=== PATIENT | male | born 1955 | race Caucasian/White ===

== ENCOUNTER 2018-10-03 13:39 | Emergency (ER) | payer MEDICAID ==
[~2018-10-03] VITALS: Ht 185.4 cm; Wt 90.7 kg
[2018-10-03] MEDS ORDERED: PROTONIX40 M1 PO (14:11)
[2018-10-03] MEDS ORDERED: COLACE100 MG PO ×2 (14:11→14:14)
[2018-10-03] MEDS ORDERED: LISINOPRIL10 MG PO (14:11)
[2018-10-03] MEDS ORDERED: UNICOMPLEX M TA1 TA1 PO (14:12)
[2018-10-03] MEDS ORDERED: BUSPIRONE HCL10 MG PO (14:12)
[2018-10-03] MEDS ORDERED: MIRALAX17 GM PO (14:12)
[2018-10-03] MEDS ORDERED: QUETIAPINE FUM100 MG PO (14:13)
[2018-10-03] MEDS ORDERED: RISPERDAL4 M1 PO (14:13)
[2018-10-03] MEDS ORDERED: ABILIFY20 MG PO (14:14)
[2018-10-03] MEDS ORDERED: DEPAKOTE ER500 MG PO (14:14)
[2018-10-03] MEDS ORDERED: TOFRANIL25 MG PO (14:15)
[2018-10-03] MEDS ORDERED: TYLENOL325 MG PO (14:15)
[2018-10-03] MEDS ORDERED: NAPROSYN500 MG PO (14:16)
[2018-10-03] MEDS ORDERED: MILK OF MA2400 MG/10 PO (14:16)
[2018-10-03] MEDS ORDERED: ELOCON15 GM TOP (14:17)
[2018-10-03] MEDS ORDERED: TRIAMCINOLONE 080 G3 TOP (14:17)
[2018-10-03 16:13] VITALS: BP 129/87
== END 2018-10-03 16:14 | disposition home or self-care (01) ==
LOC: M.ERS 13:39
DX: S93.492A Sprain of other ligament of left ankle, initial encounter (principal); S89.92XA Unspecified injury of left lower leg, initial encounter; F31.9 Bipolar disorder, unspecified; F42.9 Obsessive-compulsive disorder, unspecified; I10 Essential (primary) hypertension; Z86.2 Personal history of diseases of the blood and blood-forming organs and certain disorders involving the immune mechanism; W01.0XXA Fall on same level from slipping, tripping and stumbling without subsequent striking against object, initial encounter; Y92.89 Other specified places as the place of occurrence of the external cause; Y93.89 Activity, other specified; Y99.8 Other external cause status

== ENCOUNTER → 2018-11-11 | Outpatient (CLI) | payer MEDICARE, MEDICAID ==
[~2018-11-11] MED LIST: ABILIFY20 MG PO; BUSPIRONE HCL10 MG PO; COLACE100 MG PO; DEPAKOTE ER500 MG PO; ELOCON15 GM TOP; LISINOPRIL10 MG PO; MILK OF MA2400 MG/10 PO; MIRALAX17 GM PO; NAPROSYN500 MG PO; PROTONIX40 M1 PO; QUETIAPINE FUM100 MG PO; RISPERDAL4 M1 PO; TOFRANIL25 MG PO; TRIAMCINOLONE 080 G3 TOP; TYLENOL325 MG PO; UNICOMPLEX M TA1 TA1 PO
== END ==
LOC: M.MRI 16:28
DX: S82.045A Nondisplaced comminuted fracture of left patella, initial encounter for closed fracture (principal); S72.425A Nondisplaced fracture of lateral condyle of left femur, initial encounter for closed fracture; S83.242A Other tear of medial meniscus, current injury, left knee, initial encounter; X50.1XXA Overexertion from prolonged static or awkward postures, initial encounter; Y93.89 Activity, other specified; Y92.89 Other specified places as the place of occurrence of the external cause; Y99.8 Other external cause status

== ENCOUNTER 2018-11-19 12:09 | Emergency (ER) | payer MEDICARE, MEDICAID ==
[~2018-11-19] VITALS: Ht 188 cm; Wt 104.3 kg
[2018-11-19] MEDS ORDERED: PRESERVISION T1 EACH PO (12:38)
[2018-11-19] MEDS ORDERED: TIROSINT25 MCG PO (12:38)
[2018-11-19] MEDS ORDERED: IMIPRAMINE HCL25 MG PO (12:39)
[2018-11-19] MEDS ORDERED: IBUPROFEN 800800 M1 PO (13:13)
[2018-11-19 13:40] VITALS: BP 122/88
== END 2018-11-19 13:41 | disposition home or self-care (01) ==
LOC: M.ERS 12:09
DX: S82.092A Other fracture of left patella, initial encounter for closed fracture (principal); F42.9 Obsessive-compulsive disorder, unspecified; F31.9 Bipolar disorder, unspecified; I10 Essential (primary) hypertension; G20 Parkinson's disease; Z86.2 Personal history of diseases of the blood and blood-forming organs and certain disorders involving the immune mechanism; X50.1XXA Overexertion from prolonged static or awkward postures, initial encounter; Y92.89 Other specified places as the place of occurrence of the external cause; Y93.89 Activity, other specified; Y99.8 Other external cause status

== ENCOUNTER 2018-11-30 19:33 | Inpatient (IN) | payer MEDICARE, MEDICAID ==
[~2018-11-30] VITALS: Ht 185.4 cm; Wt 94.8 kg
[~2018-11-30 19:33] MED LIST changes: +IBUPROFEN 800800 M1 PO; +IMIPRAMINE HCL25 MG PO; +PRESERVISION T1 EACH PO; +TIROSINT25 MCG PO
[2018-11-30 19:35] VITALS: BP 131/68
[2018-11-30 20:04] LABS: ABSOLUTE EOSINOPHILS 0.1 thou/uL (0.0-0.7); ABSOLUTE LYMPHOCYTES 1.4 thou/uL (0.8-5.3); ABSOLUTE MONOCYTES 0.8 thou/uL (0.0-1.2); ABSOLUTE NEUTROPHILS 2.1 thou/uL (1.6-8.1); BASOPHILS 0.9 %; EOSINOPHILS 2.3 %; HEMATOCRIT 35.6 % (42.0-52.0); HEMOGLOBIN 12.1 gm/dL (14.0-18.0); LYMPHOCYTES 32.1 %; MCH 29.8 pg (26.0-34.0); MCV 87.7 fL (80.0-100.0); MPV 7.8 fl. (7.2-11.1); NUCLEATED RBCS 0 /100WBC; PLATELET COUNT* 207 thou/uL (150-400); POLYS 47.7 %; RBC 4.05 mil/uL (4.50-6.00); RDW-CV 14.1 % (10.5-14.5); WBC 4.4 thou/uL (4.0-11.0)
[2018-11-30 20:13] LABS: INR 1.1; PROTIME 10.9 Seconds (9.20-11.50)
[2018-11-30 20:21] LABS: ANION GAP 8 mmol/L (7-16); BUN 49 mg/dL (7-18); CALCIUM 8.5 mg/dL (8.5-10.1); CHLORIDE 104 mmol/L (98-107); CO2 27 mmol/L (21-32); CREATININE 2.3 mg/dL (0.6-1.3); GLUCOSE 111 mg/dL (70-99); SODIUM 139 mmol/L (136-145); TROPONIN-I LEVEL <0.06 ng/mL (<0.06)
[2018-11-30 20:23] LABS: ALBUMIN 3.1 g/dL (3.4-5.0); ALKALINE PHOSPHATASE 126 U/L (46-116); NT-PRO BRAIN NAT PEPTIDE 78 pg/mL (<300); SGOT 20 U/L (15-37); SGPT 13 U/L (30-65); TOTAL BILIRUBIN 0.2 mg/dL (<0.1-1.0); TOTAL PROTEIN 7.4 g/dL (6.4-8.2)
[2018-11-30 22:54] VITALS: BP 114/65
[2018-11-30 23:20] LABS: URINE BILIRUBIN NEGATIVE (Negative); URINE BLOOD NEGATIVE (Negative); URINE CLARITY CLEAR; URINE COLOR YELLOW; URINE GLUCOSE-RANDOM NEGATIVE (Negative); URINE KETONES NEGATIVE (Negative); URINE LEUKOCYTES-REFLEX NEGATIVE (Negative); URINE NITRITE-REFLEX NEGATIVE (Negative); URINE PROTEIN NEGATIVE (Negative); URINE UROBILINOGEN 0.2 E.U./dl (0.2-1.0)
[2018-12-01] VITALS: BP 130/66
[2018-12-01] MEDS ORDERED: DEPAKOTE ER250 MG PO (00:12)
[2018-12-01 04:00] VITALS: BP 142/75
[2018-12-01 08:00] VITALS: BP 136/67
[2018-12-01 12:00] VITALS: BP 141/79
[2018-12-01 16:00] VITALS: BP 141/78
[2018-12-01 20:00] VITALS: BP 126/65; BP 130/64
[2018-12-02] VITALS (8 sets, daily range): BP systolic 130–154; BP diastolic 66–84
[2018-12-02 04:46] LABS: CALCIUM 8.8 mg/dL (8.5-10.1); POTASSIUM 4.7 mmol/L (3.5-5.1)
[2018-12-02 05:01] LABS: CREATININE 1.1 mg/dL (0.6-1.3)
--- NOTE | 2018-12-02 11:06 | EKG ---
[place] [address] ELECTROCARDIOGRAM REPORT Name: RIOFORTINO Ciera Room: [address] ADM IN M.R.#: [id number] Admission: 11/30/18 Attend Phys: Juan Khan MD Discharge: Date of : 55 Report #: [id number] THIS REPORT FOR: //name// [facility] ED Test Date: 2018-11-30 Test Time: 19:39:17 Pat Name: FORTINO PATE Department: Room: [facility] Gender: M Supervisory Lifeguard: BRANDO : 1955 Requested By: Marleen Can Order Number: [id number] MD: Dennis Bradshaw Measurements Intervals [place] Rate: 88 P: [place]: QRS: 98 QRSD: 123 T: 57 QT: 359 QTc: 435 Interpretive Statements Sinus rhythm Nonspecific intraventricular conduction delay No previous ECG available for comparison Electronically Signed On 12-02-2018 11:05:54 CDT by Dennis Bradshaw [email or web address] <ELECTRONICALLY SIGNED> By: Dennis Bradshaw MD, [facility] 12/02/18 1105 1939 38 Dennis Bradshaw MD, FACC /EPI
[2018-12-02] MEDS ORDERED: MILK OF MA2400 MG/11 PO (13:23)
--- NOTE | 2018-12-02 16:46 | 2DMMODE ---
[place] [address] 2 D/M-MODE ECHOCARDIOGRAM Name: RIOFORTINO Vang Room: [address] IN [facility]#: [id number] Admission: 11/30/18 Attend Phys: Juan Khan MD Discharge: Date of : 55 Date of Service: 12/02/18 1645 Report #: [id number] THIS REPORT FOR: //name// APPROVED REPORT Study performed: 12/02/2018 13:39:18 EXAM: Comprehensive 2D, Doppler, and color-flow Echocardiogram Patient Location: In-Patient Room #: 214 Status: routine BSA: 2.19 HR: 83 bpm BP: 154/84 mmHg Rhythm: NSR Indications Syncope 2D Dimensions IVSd: 7.84 (7-11mm) LVOT Diam: 21.55 (18-24mm) LVDd: 36.06 mm PWd: 8.45 (7-11mm) Ascending Ao: 31.74 (22-36mm) LVDs: 19.34 (25-40mm) Aortic Root: 36.02 mm Volumes Left Atrial Volume (Systole) LA ESV Index: 11.90 mL/m2 Aortic Valve AoV Peak Derrick.: 1.11 m/s AO Peak Gr.: 4.95 mmHg LVOT Max P.06 mmHg AO Mean Gr.: 2.82 mmHg LVOT Mean P.59 mmHg LVOT Max V: 0.88 m/s AO V2 VTI: 21.12 cm LVOT Mean V: 0.59 m/s JOSE (VTI): 3.11 cm2 LVOT V1 VTI: 18.01 cm Mitral Valve E/A Ratio: 0.76 MV Decel. Time: 273.50 ms MV E Max Derrick.: 0.75 m/s MV PHT: 79.31 ms MVA (PHT): 2.77 [place] [address] 2 D/M-MODE ECHOCARDIOGRAM Name: FORTINO PATE Room: [address] IN [facility]#: [id number] Admission: 11/30/18 Attend Phys: Juan Khan MD Discharge: Date of : 55 Date of Service: 12/02/18 1645 Report #: [id number] TDI E/Lateral E': 8.33 E/Medial E': 6.82 Medial E' Derrick.: 0.11 m/s Lateral E' Derrick.: 0.09 m/s Pulmonary Valve PV Peak Derrick.: 0.96 m/s PV Peak Gr.: 3.71 mmHg Left Ventricle The left ventricle is normal size. There is normal LV segmental wall motion. Borderline concentric left ventricular hypertrophy. Left ventricular systolic function is normal. The left ventricular ejection fraction is within the normal range. LVEF is 65%. Grade I - abnormal relaxation pattern. Right Ventricle The right ventricle is normal size. The right ventricular systolic function is normal. Atria The left atrium size is normal. The right atrium size is normal. Aortic Valve Aortic valve leaflets are mildly thickened. No aortic regurgitation is present. There is no aortic valvular stenosis. Mitral Valve The mitral valve is normal in structure. There is no mitral valve regurgitation noted. No evidence of mitral valve stenosis. Tricuspid Valve The tricuspid valve is normal in structure. Unable to assess PA pressure. Trace tricuspid regurgitation. Pulmonic Valve The pulmonary valve is normal in structure. There is no pulmonic valvular regurgitation. Great Vessels The aortic root is normal in size. IVC is normal in size and collapses >50% with inspiration. Pericardium There is no [place] [address] 2 D/M-MODE ECHOCARDIOGRAM Name: RIOFORTINO Vang Room: [address] IN [facility]#: [id number] Admission: 11/30/18 Attend Phys: Juan Khan MD Discharge: Date of : 55 Date of Service: 12/02/18 1645 Report #: [id number] <Conclusion> The left ventricle is normal size. Borderline concentric left ventricular hypertrophy. Left ventricular systolic function is normal. The left ventricular ejection fraction is within the normal range. LVEF is 65%. Grade I - abnormal relaxation pattern. The right ventricle is normal size. The left atrium size is normal. Aortic valve leaflets are mildly thickened. No aortic regurgitation is present. There is no aortic valvular stenosis. The mitral valve is normal in structure. The tricuspid valve is normal in structure. IVC is normal in size and collapses >50% with inspiration. There is no pericardial effusion. There is normal LV segmental wall motion. <ELECTRONICALLY SIGNED> By: Dennis Bradshaw MD, [facility] 12/02/18 1645 164 164 Dennis Bradshaw MD, FAC /INF
== END 2018-12-02 17:47 | disposition home or self-care (01) | DRG 70 ==
LOC: M.ERS 19:33 → M.TBA-ER 21:22 → M.2W 21:22
PROVIDERS: Emergency Medicine; Internal Medicine; ADMIT Family Medicine
DX: G93.41 Metabolic encephalopathy (principal); N17.0 Acute kidney failure with tubular necrosis; F42.9 Obsessive-compulsive disorder, unspecified; I10 Essential (primary) hypertension; F17.220 Nicotine dependence, chewing tobacco, uncomplicated; F31.9 Bipolar disorder, unspecified; K44.9 Diaphragmatic hernia without obstruction or gangrene; G20 Parkinson's disease; Z79.899 Other long term (current) drug therapy

== ENCOUNTER 2018-12-19 14:10 | Inpatient (IN) | payer MEDICARE, MEDICAID ==
[~2018-12-19] VITALS: Ht 185.4 cm; Wt 78.9 kg
[~2018-12-19 14:10] MED LIST changes: +DEPAKOTE ER250 MG PO; +MILK OF MA2400 MG/11 PO
[2018-12-19 14:13] VITALS: BP 110/74
--- NOTE | 2018-12-19 14:20 | NUR ---
CANDE CARO DEPUTY WASHER ASSEMBLER GAVE CONSENT FOR TREATMENT OF FORTINO PATE. CANDE APPROVED CONSENT AND STATES THAT HE IS CONTACTING ELSA WELSH TO NOTIFY HIM OF PT'S EMERGENCY ROOM VISIT. CANDE WAS CONTACTED AT [phone]
[2018-12-19 14:38] LABS: ABSOLUTE EOSINOPHILS 0.1 thou/uL (0.0-0.7); ABSOLUTE LYMPHOCYTES 1.1 thou/uL (0.8-5.3); ABSOLUTE MONOCYTES 0.6 thou/uL (0.0-1.2); ABSOLUTE NEUTROPHILS 1.2 thou/uL (1.6-8.1); BASOPHILS 0.9 %; EOSINOPHILS 1.7 %; HEMATOCRIT 36.9 % (42.0-52.0); HEMOGLOBIN 12.5 gm/dL (14.0-18.0); LYMPHOCYTES 37.4 %; MCH 29.8 pg (26.0-34.0); MCHC 33.9 g/dL (28.0-37.0); MCV 87.9 fL (80.0-100.0); MONOCYTES 19.6 %; MPV 7.8 fl. (7.2-11.1); NUCLEATED RBCS 0 /100WBC; PLATELET COUNT* 163 thou/uL (150-400); POLYS 40.4 %; RDW-CV 14.7 % (10.5-14.5); WBC 3.1 thou/uL (4.0-11.0)
[2018-12-19 14:56] LABS: ANION GAP 7 mmol/L (7-16); BUN 23 mg/dL (7-18); CALCIUM 9.2 mg/dL (8.5-10.1); CHLORIDE 106 mmol/L (98-107); CO2 30 mmol/L (21-32); CREATININE 1.1 mg/dL (0.6-1.3); GLUCOSE 96 mg/dL (70-99); POTASSIUM 4.4 mmol/L (3.5-5.1); SODIUM 143 mmol/L (136-145); TROPONIN-I LEVEL <0.06 ng/mL (<0.06)
[2018-12-19 14:58] LABS: ALBUMIN 3.2 g/dL (3.4-5.0); ALKALINE PHOSPHATASE 114 U/L (46-116); NT-PRO BRAIN NAT PEPTIDE 28 pg/mL (<300); SGOT 15 U/L (15-37); SGPT 16 U/L (30-65); TOTAL BILIRUBIN 0.4 mg/dL (<0.1-1.0); TOTAL PROTEIN 8.2 g/dL (6.4-8.2)
[2018-12-19 16:00] LABS: URINE BILIRUBIN NEGATIVE (Negative); URINE BLOOD NEGATIVE (Negative); URINE CLARITY CLEAR; URINE COLOR YELLOW; URINE GLUCOSE-RANDOM NEGATIVE (Negative); URINE KETONES NEGATIVE (Negative); URINE LEUKOCYTES-REFLEX NEGATIVE (Negative); URINE NITRITE-REFLEX NEGATIVE (Negative); URINE PROTEIN NEGATIVE (Negative); URINE SPECIFIC GRAVITY 1.015 (1.005-1.030); URINE UROBILINOGEN 0.2 E.U./dl (0.2-1.0)
[2018-12-19 17:14] VITALS: BP 127/77
[2018-12-19 17:15] VITALS: BP 122/73
--- NOTE | 2018-12-19 18:00 | NUR ---
PT ADMITTED TO ROOM 212 VIA CART FROM ED AT APPROXIMATELY 1720. ADMISSION ASSESSMENT AND HISTORY COMPLETED. REFER TO CHARTING. PT A&0X4, DENIES ANY PAIN OR SHORTNESS OF BREATH. CAREGIVER AT BEDSIDE AND ASSISTED WITH PT HISTORY. TREMORS NOTED. PT TRACING SR ON THE EMPLOYMENT SECURITY OFFICER. ON RA SAT UPPER 90'S. PT UP WITH 1 ASSIST AND WALKER, LLE BRACE AND GAIT BELT TO BATHROOM. PT UNSTEADY AT TIMES. SEPSIS SCREENING COMPLETE- PT NEGATIVE. MEDICATIONS PER OCT. PT REPOSITIONS SELF. HOURLY ROUNDING OBSERVED. BED IN LOW POSITION. BED ALARM IN PLACE. FALL PRECAUTIONS IN PLACE. CALL LIGHT WITHIN REACH. WILL CONTINUE PLAN OF CARE.
[2018-12-19 20:05] VITALS: BP 140/75
[2018-12-20 00:15] VITALS: BP 123/76
[2018-12-20 03:46] VITALS: BP 115/69
--- NOTE | 2018-12-20 04:27 | NUR ---
PATIENT NOT PROGRESSING TOWARDS GOALS: PATIENT HAS C/O CHEST PAIN THAT "COMES AND GOES." PATIENT DESCRIBES PAIN STABBING BUT UNABLE TO RATE IT ON NUMERIC SCALE. PATIENT POINTS TO EPIGASTRIC REGION WHEN ASKED TO LOCALIZE PAIN. CTA CHEST COMPLETED FOR ELEVATED D-DIMER AND CHEST PAIN. NEGATIVE FOR PE BUT SHOWS LARGE STOOL IN COLON AND MULTIPLE GALLSTONES IN GALLBLADDER. PATIENT AND CAREGIVER UNABLE TO RECALL LAST BOWEL MOVEMENT. MILK OF MAGNESIA AND COLACE GIVEN. NO BOWEL MOVEMENT THIS SHIFT. NO N/V. CALL LIGHT WITHIN REACH
[2018-12-20 05:25] LABS: HEMATOCRIT 34.6 % (42.0-52.0); HEMOGLOBIN 12.1 gm/dL (14.0-18.0); MCH 30.8 pg (26.0-34.0); MCV 87.8 fL (80.0-100.0); MPV 8.5 fl. (7.2-11.1); NUCLEATED RBCS 0 /100WBC; PLATELET COUNT* 150 thou/uL (150-400); RBC 3.94 mil/uL (4.50-6.00); RDW-CV 14.5 % (10.5-14.5); WBC 3.6 thou/uL (4.0-11.0)
[2018-12-20 05:38] LABS: CALCIUM 9.3 mg/dL (8.5-10.1); POTASSIUM 4.3 mmol/L (3.5-5.1)
[2018-12-20 06:27] LABS: ABSOLUTE EOSINOPHILS 0.1 thou/uL (0.0-0.7); ABSOLUTE LYMPHOCYTES 1.7 thou/uL (0.8-5.3); ABSOLUTE MONOCYTES 0.8 thou/uL (0.0-1.2); ABSOLUTE NEUTROPHILS 0.9 thou/uL (1.6-8.1); PLATELET ESTIMATE ADEQUATE
[2018-12-20 06:28] LABS: ANISOCYTOSIS 1+; POIKILOCYTOSIS 1+
[2018-12-20 07:39] VITALS: BP 114/72
--- NOTE | 2018-12-20 09:45 | NUR ---
ASSUMED CARE OF PT AT 0730. PT RESTING IN BED. CAREGIVER AT BEDSIDE. PT A&0X4, DENIES ANY PAIN OR SHORTNESS OF BREATH. TREMORS NOTED. PT TRACING SR ON THE REHAB AIDE. ON RA SAT UPPER 90'S. PT UP WITH 1 ASSIST WALKER, GAIT BELT AND LLE BRACE. PT GOAL FOR TODAY IS TO REMAIN FREE FROM CHEST PAIN, HAVE A BOWEL MOVEMENT AND INCREASE ACTIVITY. AM ASSESSMENT CHARTED, MEDICATIONS PER MAR. PT REPOSITIONS SELF. HOURLY ROUNDING OBSERVED. BED IN LOW POSITION. CALL LIGHT WITHIN REACH. WILL CONTINUE PLAN OF CARE.
--- NOTE | 2018-12-20 09:54 | EKG ---
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 12/20/18 0954 1411 141 Burak Garcia MD, FAC /EPI
--- NOTE | 2018-12-20 11:51 | NUR ---
Pt is A&O. Pt resides at a [facility], [facility], caregiver in room. Staff prepare all of the meals, pass meds and provide transportation. Pt is using a walker, post a broken knee cap, Pt also has a leg brace. No hx of HH of SNF. Pt has a Public Casket Liner, that needs [place] be contacted [place] [phone]. supervisor felting at [facility] is Sharla Post [phone], staff will provide [place] transportation.
[2018-12-20 12:10] VITALS: BP 114/66
[2018-12-20 15:59] VITALS: BP 117/75
--- NOTE | 2018-12-20 18:22 | NUR ---
NO ACUTE CHANGES THROUGHOUT SHIFT. REFER TO CHARTING. PT SLOWLY PROGRESSING TOWARDS GOALS. CAREGIVER REMAINS AT BEDSIDE. CONTINUES TO TRACE SR ON THE WINE MAKER. ON RA SAT UPPER 90'S. DENIES ANY SHORTNESS OF BREATH. PT UP WITH 1 ASSIST WALKER AND LLE BRACE. MEDICATIONS PER OCT. PT REPOSITIONS SELF. HOURLY ROUNDING OBSERVED. BED IN LOW POSITION. CALL LIGHT WITHIN REACH. WILL CONTINUE PLAN OF CARE.
[2018-12-20 20:00] VITALS: BP 104/64
[2018-12-21] VITALS: BP 106/58
[2018-12-21 04:00] VITALS: BP 100/56
[2018-12-21 04:49] LABS: HEMATOCRIT 35.8 % (42.0-52.0); MCH 29.4 pg (26.0-34.0); MCHC 33.5 g/dL (28.0-37.0); MCV 87.9 fL (80.0-100.0); MPV 8.7 fl. (7.2-11.1); RBC 4.08 mil/uL (4.50-6.00); RDW-CV 14.4 % (10.5-14.5); WBC 3.8 thou/uL (4.0-11.0)
[2018-12-21 05:08] LABS: ALBUMIN 2.9 g/dL (3.4-5.0); CREATININE 1.1 mg/dL (0.6-1.3); MAGNESIUM 1.8 mg/dL (1.8-2.4); PHOSPHORUS* 4.6 mg/dL (2.5-4.9); POTASSIUM 4.5 mmol/L (3.5-5.1); TOTAL BILIRUBIN 0.3 mg/dL (<0.1-1.0); TOTAL PROTEIN 7.2 g/dL (6.4-8.2)
--- NOTE | 2018-12-21 05:40 | NUR ---
ASSUMED CARE OF PT AFTER REPORT AT 1930. PT A&OX4. VSS. PHYSICAL ASSESSMENT COMPLETED AND CHARTED. PT ON RA WITH 93% O2 SAT. PT TRACING SR ON TELE. DENIES ANY PAIN OR SOA. PT RESTED WELL ON BED. HOURLY ROUNDING OBSERVED. CALL LIGHT WITHIN REACH.
--- NOTE | 2018-12-21 07:15 | NUR ---
CHANGE OF SHIFT BEDSIDE REPORT GIVEN PATIENT SEEN AT BEDSIDE IN BED ASLEEP ASSUMED PATIENT CARE
[2018-12-21 08:00] VITALS: BP 114/84
[2018-12-21 12:24] VITALS: BP 95/56
[2018-12-21 13:45] VITALS: BP 95/56
--- NOTE | 2018-12-21 15:00 | NUR ---
DISCHARGE TO [facility] IV AND HEART MONITOR REMOVED PERSOANL BELONGINGS RETURNED INSTRUCTIONS AND COPIES OF DISCHARGE ORDERS SENT REPORT GIVEN TO MIHIR NURSE AT [facility] PATIENT ASSISTED OUT VIA WC TO WAITING CAR
== END 2018-12-21 15:00 | disposition home or self-care (01) | DRG 178 ==
LOC: M.ERS 14:10 → M.2W 15:58 → M.TBA-ER 15:58 → M.2W 17:31
PROVIDERS: Nurse Practitioner; ADMIT Internal Medicine
DX: J69.0 Pneumonitis due to inhalation of food and vomit (principal); B19.10 Unspecified viral hepatitis B without hepatic coma; R65.10 Systemic inflammatory response syndrome (SIRS) of non-infectious origin without acute organ dysfunction; F42.9 Obsessive-compulsive disorder, unspecified; F31.9 Bipolar disorder, unspecified; K80.20 Calculus of gallbladder without cholecystitis without obstruction; K21.9 Gastro-esophageal reflux disease without esophagitis; R07.89 Other chest pain; R62.50 Unspecified lack of expected normal physiological development in childhood; K59.00 Constipation, unspecified; E03.9 Hypothyroidism, unspecified; I10 Essential (primary) hypertension; Z87.891 Personal history of nicotine dependence; Z79.899 Other long term (current) drug therapy; Z82.49 Family history of ischemic heart disease and other diseases of the circulatory system

== ENCOUNTER 2019-03-09 10:26 | Inpatient (IN) | payer MEDICARE, MEDICAID ==
[~2019-03-09] VITALS: Ht 188 cm; Wt 92.5 kg
[2019-03-09 10:28] VITALS: BP 143/75
--- NOTE | 2019-03-09 10:48 | NUR ---
SUE MURILLO WITH THE [facility] PUBLIC ADMINISTRATORS OFFICE HAS GIVEN CONSENT FOR THE PATIENT TO BE TREATED AT THIS FACILITY TODAY.
[2019-03-09 10:51] LABS: ABSOLUTE EOSINOPHILS 0.1 thou/uL (0.0-0.7); ABSOLUTE LYMPHOCYTES 1.5 thou/uL (0.8-5.3); ABSOLUTE MONOCYTES 0.6 thou/uL (0.0-1.2); ABSOLUTE NEUTROPHILS 1.6 thou/uL (1.6-8.1); BASOPHILS 0.6 %; EOSINOPHILS 2.1 %; HEMATOCRIT 39.5 % (42.0-52.0); HEMOGLOBIN 13.4 gm/dL (14.0-18.0); LYMPHOCYTES 39.7 %; MCH 29.5 pg (26.0-34.0); MCV 86.7 fL (80.0-100.0); MPV 7.9 fl. (7.2-11.1); NUCLEATED RBCS 0 /100WBC; PLATELET COUNT* 175 thou/uL (150-400); POLYS 42.6 %; RBC 4.55 mil/uL (4.50-6.00); RDW-CV 14.8 % (10.5-14.5); WBC 3.8 thou/uL (4.0-11.0)
[2019-03-09 11:00] LABS: APTT 29.4 Seconds (25.0-31.3); INR 1.1; PROTIME 10.9 Seconds (9.20-11.50)
[2019-03-09 11:06] LABS: ANION GAP 9 mmol/L (7-16); BUN 19 mg/dL (7-18); CALCIUM 8.7 mg/dL (8.5-10.1); CHLORIDE 104 mmol/L (98-107); CO2 29 mmol/L (21-32); CREATININE 0.9 mg/dL (0.6-1.3); GLUCOSE 138 mg/dL (70-99); SODIUM 142 mmol/L (136-145)
[2019-03-09 11:09] LABS: ALBUMIN 3.4 g/dL (3.4-5.0); ALKALINE PHOSPHATASE 125 U/L (46-116); NT-PRO BRAIN NAT PEPTIDE 20 pg/mL (<300); SGOT 17 U/L (15-37); SGPT 21 U/L (30-65); TOTAL BILIRUBIN 0.3 mg/dL (<0.1-1.0); TOTAL PROTEIN 7.5 g/dL (6.4-8.2); TROPONIN-I LEVEL <0.06 ng/mL (<0.06)
[2019-03-09 12:14] LABS: URINE BILIRUBIN NEGATIVE (Negative); URINE BLOOD NEGATIVE (Negative); URINE CLARITY CLEAR; URINE COLOR YELLOW; URINE GLUCOSE-RANDOM NEGATIVE (Negative); URINE KETONES NEGATIVE (Negative); URINE LEUKOCYTES-REFLEX NEGATIVE (Negative); URINE NITRITE-REFLEX NEGATIVE (Negative); URINE PROTEIN NEGATIVE (Negative); URINE UROBILINOGEN 0.2 E.U./dl (0.2-1.0)
[2019-03-09 12:34] LABS: CHOLESTEROL 168 mg/dL (<200); HDL CHOLESTEROL 40 mg/dL (>40); LDL CHOLESTEROL 98 mg/dL (<100); TC:HDL 4.2 Ratio (Not establshd); TRIGLYCERIDE 151 mg/dL (<150); VLDL 30 mg/dL (<40)
[2019-03-09 12:35] LABS: SERUM ASSESSMENT Clear
--- NOTE | 2019-03-09 14:58 | NUR ---
PT ADMITTED TO TELE FLOOR AT 1410 REPORT RECEIVED FROM NURSE. PT IS AOX2 FORGETFUL AND CONFUSED. PT IS ACCOMPANIED BY STAFF FROM [facility] WHERE HE IS FROM. ON RA AND O2 SATURATION IS 97%. TROP NEGATIVE. PT DENIES ANY PAIN. NO DIZINESS AT TIME OF ADMISSION. ADMISSION ASSESSMENT AND HX DONE AT BEDSIDE. CALL LIGHT AT REACH. WILL CONTINUE TO MONITOR
[2019-03-09 15:02] VITALS: BP 130/76
[2019-03-09 19:40] VITALS: BP 115/66
[2019-03-10] VITALS (11 sets, daily range): BP systolic 95–148; BP diastolic 49–89
--- NOTE | 2019-03-10 05:32 | NUR ---
PT CARE ASSUMED AT 1930. SAT MAINTAINED IN RA. PT IS CONFUSED. FOLLOWS COMMANDS. CALL LIGHT WITHIN REACH AND BED IN LOW POSITION. DENIES PAIN AND SOB. HOURLY ROUNDING DONE FOR PT SAFETY.
--- NOTE | 2019-03-10 11:40 | NUR ---
PT ORTHOSTATIC BP CHECKED AT 11:35. RESULT CHARTED. SEE CHART
--- NOTE | 2019-03-10 15:27 | NUR ---
Spoke with CG. Pt resides in a shelter. Staff complete cooking, cleaning and provide transportation. Pt has a walker that he can use if needed. No hx of HH or SNF. Pt has a Public Adm, who will need to be contacted at [place]. Following.
--- NOTE | 2019-03-10 16:04 | EKG ---
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
--- NOTE | 2019-03-10 17:22 | NUR ---
1 LITER OF FLUID GIVEN ORDERED FOR POSITIVE ORTHOSTATIC BP. ORTHOSTATIC BP CHECKED AND CHARTED. SEE CHART.
[2019-03-11] VITALS (12 sets, daily range): BP systolic 87–136; BP diastolic 56–83
--- NOTE | 2019-03-11 05:11 | NUR ---
PT CARE ASSUMED AT 1930. SAT MAINTAINED IN RA. USES CALL LIGHT APPROPRIATELY. DENIES PAIN AND SOB. CALL LIGHT WITHIN REACH AND BED IN LOW POSITION. HOURLY ROUNDING DONE FOR PT SAFETY.
[2019-03-11] MEDS ORDERED: MIDODRINE HCL 55 M1 PO (10:01)
--- NOTE | 2019-03-11 10:40 | NUR ---
ASSUMED PT CARE REPORT RECEIVED FROM NURSE. PT IS AOX4. SR ON WINDOWS APPLICATION DEVELOPER .ON RA, O2 SATURATION IS 95%. ORTHOSTATIC BP MEASURED. SEE CHART FOR RESULT. PT/OT. MIDODRINE GIVEN ORDERED. PT DENIES DIZINESS, SOA. EXTREMITIES AR WARM. PENDING DC PLAN AFTER LUNCH TIME AFTER CHECKING ORTHOSTATIC BP AGAIN. STAFF FROM [facility] IN PT ROOM. CALL LIGHT AT REACH. WILL CONTINUE TO MONITOR PT
--- NOTE | 2019-03-11 12:20 | NUR ---
ORTHOSTATIC BP RECHECK. SEE CHART. PT DENIES DIZINESS OR WEAKNESS. PT STATES: I DO NOT FEEL LIKE A LEAF ANYMORE".
--- NOTE | 2019-03-11 12:22 | NUR ---
BP WAS COMMUNICATED TO DR ATKINS. NO FURHTER ORDERS. PT TO GO HOME AFTER LUNCH WITH PLANNED TRANSPORTATION FROM [facility]
--- NOTE | 2019-03-11 12:36 | NUR ---
Pt discharging to home today. Spoke with [facility] nurse, they normally use [facility], faxed referral. CM updated Pt's Public Admin office of dc to home with HH, faxed dc orders. CM confirmed with [facility] nurse that Pt's PCP is Dr Shook at [facility]
--- NOTE | 2019-03-11 17:29 | NUR ---
PT. DISCHARGED TO HOME PRIOR TO O.T. EVAL. PLEASE ORDER FURTHER O.T. SERVICES IF NEEDED.
--- NOTE | 2019-03-12 16:54 | CON ---
[address] [address] CONSULTATION Name: FORTINO PATE Room: [address] IN M.R.#: [id number] Admission: 03/09/19 Attend Phys: Jadyn Hogue MD Discharge: 03/11/19 Date of : 55 Report #: [id number] THIS REPORT FOR: //name// CC: BRANDON physician/PCP Jadyn Hogue DATE OF SERVICE: 03/10/2019 CARDIOLOGY CONSULTATION HISTORY OF PRESENT ILLNESS: The patient is a 63-year-old single white male with manic depressive disorder. He lives in a residential, who was brought from the residential yesterday to [place] after he had a dizzy spell. The history is obtained from the chart as well as the patient and some notes. The patient has no previous history of heart disease. He is not very active at this time. Fortunately, he quit smoking. He also has a history of alcohol abuse. He states he was doing well until yesterday. After breakfast, he apparently felt lightheaded. He was sat down on a chair. He apparently did not fall to the ground. alf member brought him here to [place] and he was admitted. Denies any chest pain, shortness of breath, palpitations, edema, seizure activity. PAST MEDICAL HISTORY: He has had no major surgical procedures. He has a history of bipolar disorder, hepatitis, hypertension. MEDICATIONS: At the residential include lisinopril, buspirone, Seroquel, Protonix, Risperdal, Depakote, Synthroid. ALLERGIES: He has no known drug allergies. FAMILY HISTORY: Brother had diabetes. SOCIAL HISTORY: He is single, never been . He is not working at this time. No history of illicit drug use. Quit smoking in the past. He also has a previous history of alcohol abuse. REVIEW OF SYSTEMS: He has had no history of stroke, asthma, peptic ulcer disease, kidney disease or cancer. PHYSICAL EXAMINATION: GENERAL: Revealed a middle-aged male, lying in bed, appeared in no distress. He previously was admitted here in December with constipation. VITAL SIGNS: Blood pressure 120/70, pulse 70, he is afebrile. HEENT: He is anicteric. Conjunctivae pink. Mucous members moist. NECK: Veins are nondistended. CHEST: [place] [address] CONSULTATION Name: FORTINO PATE Room: [address]#: [id number] Admission: 03/09/19 Attend Phys: Jadyn Hogue MD Discharge: 03/11/19 Date of : 55 Report #: [id number] CARDIOVASCULAR: Regular rate and rhythm without rub or murmur. ABDOMEN: Soft. EXTREMITIES: Had no edema. Dorsalis pedis pulse 2+ bilaterally. SKIN: Warm, dry. NEUROLOGIC: Nonfocal. LABORATORY DATA: His ECG on the monitor shows a normal sinus rhythm. There was a rare PVC. A 12-lead ECG showed a sinus rhythm with no ST or T-wave change. He actually had an echocardiogram recently in November that showed left ventricular hypertrophy, ejection fraction 60%, no significant valvular abnormality. X-RAYS: The patient had a CT scan of the head without contrast yesterday that showed no acute abnormality. His chest x-ray showed no acute abnormality. Carotid Doppler study in November showed mild plaque, but no high grade stenosis. LABORATORY DATA: Sodium 142, creatinine 0.9. Liver function studies were normal. Troponin 0.06. BNP 20. Cholesterol 168, triglyceride 131, HDL 40, LDL 98. TSH 3.3. White blood cell count 3.8, hemoglobin 13.4. IMPRESSION RECOMMENDATIONS: 1. Dizzy spell. Reason unclear. Possible dehydration. Recommend no cardiac workup. 2. Bipolar disorder. 3. History of hypertension. The patient has been on an SUHAIL inhibitor. 4. Previous tobacco abuse. The patient no longer smokes. 5. History of alcohol abuse. The patient no longer abuses alcohol. Recommend no further cardiac evaluation. <ELECTRONICALLY SIGNED> By: Burak Garcia MD, FACC 03/12/19 1654 0944 [id number] Garcia MD, FACC /nt
== END 2019-03-11 14:28 | disposition home health service (06) | DRG 316 ==
LOC: M.ERS 10:26 → M.TBA-ER 11:46 → M.2W 11:46
PROVIDERS: Family Medicine; ADMIT Internal Medicine
DX: I95.9 Hypotension, unspecified (principal); G20 Parkinson's disease; F31.9 Bipolar disorder, unspecified; I10 Essential (primary) hypertension; F42.9 Obsessive-compulsive disorder, unspecified; I34.0 Nonrheumatic mitral (valve) insufficiency; Z83.3 Family history of diabetes mellitus; Z82.49 Family history of ischemic heart disease and other diseases of the circulatory system; Z79.899 Other long term (current) drug therapy

== ENCOUNTER 2019-04-04 14:20 | Emergency (ER) | payer MEDICARE, MEDICAID ==
[~2019-04-04] VITALS: Ht 182.9 cm; Wt 85.3 kg
[~2019-04-04 14:20] MED LIST changes: +MIDODRINE HCL 55 M1 PO
[2019-04-04 14:46] LABS: ABSOLUTE EOSINOPHILS 0.1 thou/uL (0.0-0.7); ABSOLUTE LYMPHOCYTES 1.7 thou/uL (0.8-5.3); ABSOLUTE MONOCYTES 0.9 thou/uL (0.0-1.2); ABSOLUTE NEUTROPHILS 2.7 thou/uL (1.6-8.1); BASOPHILS 0.6 %; HEMATOCRIT 39.1 % (42.0-52.0); HEMOGLOBIN 13.2 gm/dL (14.0-18.0); LYMPHOCYTES 31.8 %; MCH 29.8 pg (26.0-34.0); MCHC 33.6 g/dL (28.0-37.0); MCV 88.5 fL (80.0-100.0); MONOCYTES 17.2 %; MPV 8.5 fl. (7.2-11.1); NUCLEATED RBCS 0 /100WBC; PLATELET COUNT* 156 thou/uL (150-400); POLYS 49.4 %; RBC 4.42 mil/uL (4.50-6.00); RDW-CV 14.5 % (10.5-14.5); WBC 5.4 thou/uL (4.0-11.0)
[2019-04-04 14:55] LABS: INR 1.1; PROTIME 10.8 Seconds (9.20-11.50)
[2019-04-04 14:56] LABS: ANION GAP 8 mmol/L (7-16); BUN 10 mg/dL (7-18); CALCIUM 8.5 mg/dL (8.5-10.1); CHLORIDE 103 mmol/L (98-107); CO2 30 mmol/L (21-32); CREATININE 0.8 mg/dL (0.6-1.3); GLUCOSE 108 mg/dL (70-99); POTASSIUM 3.9 mmol/L (3.5-5.1); SODIUM 141 mmol/L (136-145)
[2019-04-04 15:07] LABS: ALBUMIN 3.3 g/dL (3.4-5.0); ALKALINE PHOSPHATASE 132 U/L (46-116); LIPASE 175 U/L (73-393); NT-PRO BRAIN NAT PEPTIDE 35 pg/mL (<300); SGOT 22 U/L (15-37); SGPT 29 U/L (30-65); TOTAL BILIRUBIN 0.2 mg/dL (<0.1-1.0); TOTAL PROTEIN 7.3 g/dL (6.4-8.2); TROPONIN-I LEVEL <0.06 ng/mL (<0.06)
[2019-04-04] MEDS ORDERED: CITRATE OF MAG296 ML PO (16:41)
[2019-04-04] MEDS ORDERED: MIRALAX17 GM PO (16:41)
[2019-04-04 16:58] VITALS: BP 141/81
--- NOTE | 2019-04-07 13:01 | EKG ---
[place] [address] ELECTROCARDIOGRAM REPORT Name: FORTINO PATE [id number] Admission: 04/04/19 Attend Phys: Discharge: 04/04/19 Date of : 55 Report #: [id number] THIS REPORT FOR: //name// [facility] ED Test Date: 2019-04-04 Test Time: 14:42:59 Pat Name: FORTINO PATE Department: Room: Gender: M Direct Response Consultant: BLUE : 1955 Requested By: Ajit Cardozo Order Number: [id number] MD: Burak Garcia Measurements Intervals [place] Rate: 94 P: 45 [place]: 159 QRS: 81 QRSD: 97 T: 62 QT: 365 QTc: 457 Interpretive Statements Sinus rhythm Borderline right axis deviation Compared to ECG 03/09/2019 11:18:22 No significant changes Electronically Signed On 04-07-2019 13:01:20 CDT by Burak Garcia [email or web address] <ELECTRONICALLY SIGNED> By: Burak Garcia MD, [facility] 04/07/19 1301 1442 1442 Burak Garcia MD, FACC /EPI
== END 2019-04-04 16:59 | disposition home or self-care (01) ==
LOC: M.ERS 14:20
PROVIDERS: Emergency Medicine
DX: K59.00 Constipation, unspecified (principal); F42.9 Obsessive-compulsive disorder, unspecified; I10 Essential (primary) hypertension; F31.9 Bipolar disorder, unspecified; G21.9 Secondary parkinsonism, unspecified; Z86.2 Personal history of diseases of the blood and blood-forming organs and certain disorders involving the immune mechanism